=== PATIENT | female | born 1985 | race Caucasian/White ===

== ENCOUNTER 2017-02-28 11:08 | Emergency (ER) | payer OTHER ==
[~2017-02-28] VITALS: Ht 152.4 cm; Wt 65.0 kg
[~2017-02-28 11:08] MED LIST: CEPH-443 PO; IBUP-1542 PO; PREN-39 PO
[2017-02-28 11:10] VITALS: Ht 152.4 cm; Wt 65.0 kg
--- NOTE | 2017-02-28 11:51 | ERD ---
ER Documentation Chief Complaint Date/Time DATE: 02/28/17 TIME: 11:49 Chief Complaint ABD PAIN WITH BACK PAIN X 1 DAY HPI 32-year-old female otherwise healthy complains of left-sided back and flank pain that radiates to her left lower quadrant 1 day. She states that she has had some difficulty with voiding. Pain is sharp, diffuse, intermittent, she has not tried anything for this yet. She denies any fevers, chills, vomiting or diarrhea. Denies hematuria. ROS All systems reviewed and are negative except as per history of present illness. Medications Home Meds Active Scripts Cephalexin* (Keflex*) 500 Mg Capsule, 500 MG PO QID for 7 Days, CAP Prov:MARCIA MAXWELL MD 05/19/16 Ibuprofen* (Motrin*) 600 Mg Tab, 600 MG PO Q6, #20 TAB Prov:MARCIA MAXWELL MD 05/19/16 Ibuprofen* (Motrin*) 600 Mg Tab, 600 MG PO Q6, #30 TAB Prov:SOHAIL MARIANO PA-C 05/03/16 Cephalexin* (Keflex*) 500 Mg Capsule, 500 MG PO QID for 7 Days, CAP Prov:SOHAIL MARIANO PA-C 05/03/16 Ibuprofen* (Ibuprofen*) 600 Mg Tab, 600 MG PO Q6, #20 0 Refills Prov:HENRIETTA GARSIA MD 05/06/15 Reported Medications Vits W-Ca,Fe,Fa(<1MG) ( Vitamins) 1 Tab Tablet, 1 PO for 7 Days 05/05/15 Allergies Allergies: Coded Allergies: No Known Allergy (Unverified , 05/03/16) PMhx/Soc History of Surgery: No Anesthesia Reaction: No Hx Neurological Disorder: No Hx Respiratory Disorders: No Hx Cardiac Disorders: No Hx Psychiatric Problems: No Hx Miscellaneous Medical Probl: No Hx Alcohol Use: No Hx Substance Use: No Hx Tobacco Use: No Physical Exam Vitals Vital Signs Date Time Temp Pulse Resp B/P Pulse Ox O2 Delivery O2 Flow Rate FiO2 02/28/17 11:10 98.1 110 18 128/75 99 Physical Exam General: Well-developed, well-nourished. The patient appears in no acute distress. HEENT: Head is normocephalic, atraumatic. No scleral icterus. Neck: Supple. Nontender. Lungs: Clear to auscultation. Normal air movement. Heart: Regular rate and rhythm. S1 and S2 are normal. No murmurs, gallops, or rubs. Abdomen: Soft, ttp to the left lower quadrant, there is no rebound pain, no masses. No McBurney's tenderness. No CVA tenderness Extremities: No clubbing or cyanosis. Normal pulses. Moving extremities x 4. No weakness. Neurologic: Alert and oriented 3. No focal deficits. Skin: Normal turgor. No rash or lesions. Result Diagram: 02/28/17 1144 02/28/17 1144 Results 24 hrs Laboratory Tests Test 02/28/17 11:44 White Blood Count 12.210^3/ul Red Blood Count 4.6210^6/ul Hemoglobin 13.2g/dl Hematocrit 40.6% Mean Corpuscular Volume 87.9fl Mean Corpuscular Hemoglobin 28.6pg Mean Corpuscular Hemoglobin Concent 32.5g/dl Red Cell Distribution Width 13.7% Platelet Count 13555^3/UL Mean Platelet Volume 10.8fl Neutrophils % 79.8% Lymphocytes % 12.4% Monocytes % 7.1% Eosinophils % 0.2% Basophils % 0.2% Nucleated Red Blood Cells % 0.0/100WBC Neutrophils # 9.710^3/ul Lymphocytes # 1.510^3/ul Monocytes # 0.910^3/ul Eosinophils # 0.010^3/ul Basophils # 0.010^3/ul Nucleated Red Blood Cells # 0.010^3/ul Urine Color YELLOW Urine Clarity SLIGHTLY CLOUDY Urine pH 6.0 Urine Specific [place] 1.024 Urine Ketones NEGATIVEmg/dL Urine Nitrite NEGATIVEmg/dL Urine Bilirubin NEGATIVEmg/dL Urine Urobilinogen NEGATIVEmg/dL Urine Leukocyte Esterase NEGATIVELeu/ul Urine Microscopic RBC 3/HPF Urine Microscopic WBC 4/HPF Urine Squamous Epithelial Cells FEW/HPF Urine Mucus MODERATE/HPF Urine Hemoglobin NEGATIVEmg/dL Urine Glucose NEGATIVEmg/dL Urine Total Protein 1+mg/dl Sodium Level 142mmol/L Potassium Level 3.7mmol/L Chloride Level 103mmol/L Carbon Dioxide Level 22mmol/L Anion Gap 21 Blood Urea Nitrogen 6mg/dl Creatinine 0.54mg/dl Glucose Level 145mg/dl Calcium Level 9.2mg/dl Total Bilirubin 0.7mg/dl Direct Bilirubin 0.00mg/dl Indirect Bilirubin 0.7mg/dl Aspartate Amino Transf (AST/SGOT) 13IU/L Alanine Aminotransferase (ALT/SGPT) 27IU/L Alkaline Phosphatase 64IU/L Total Protein 7.9g/dl Albumin 4.5g/dl Globulin 3.40g/dl Albumin/Globulin Ratio 1.32 Lipase 37U/L Current Medications Medications (Trade) Dose Ordered Sig/Tabby Route PRN Reason Start Time Stop Time Status Last Admin Dose Admin Ibuprofen 600 mg 600 mg ONCE ONCE PO 02/28/17 12:00 02/28/17 12:01 DC 02/28/17 11:56 Sodium Chloride 1,000 ml @ 1,000 mls/hr Q1H STAT IV 02/28/17 13:23 02/28/17 14:22 Metronidazole 100 ml @ 100 mls/hr ONCE STAT IVPB 02/28/17 13:23 02/28/17 14:22 Ciprofloxacin/ Dextrose (Cipro Ivpb) 200 ml @ 200 mls/hr ONCE STAT IVPB 02/28/17 13:23 02/28/17 14:22 DIAGNOSTIC IMAGING REPORT Patient: JEFERSON JOLLY : 1985 Age: 32 Sex: F MR #: [id number] DOS: 02/28/17 1136 Ordering MD: MAO GUADARRAMA PA-C Location: E Room/Bed: PROCEDURE: CT Abdomen and Pelvis without contrast. CLINICAL INDICATION: Left sided abdominal pain. TECHNIQUE: CT scan of the abdomen and pelvis without contrast was performed on a multidetector high-resolution CT scanner. The patient was scanned without intravenous contrast. Coronal and sagittal reformatted images were obtained from the axial source images. Images were reviewed on a high-resolution PACS workstation. One or more of the following dose reduction techniques were used: Automated exposure control, adjustment of the mA and/or kV according to patient size, use of iterative reconstruction technique. The total exam CTDI equals 9.08 mGy and the total exam DLP equals 520.31 mGy-cm. COMPARISON: None. FINDINGS: CT abdomen: The lung bases are clear. The heart size is normal, without pericardial thickening or effusion. The liver is normal in size and density without focal mass or intrahepatic biliary dilatation. The spleen is normal in size and homogeneous in density. The stomach is grossly unremarkable. The pancreas as visualized is normal. The gallbladder and biliary tree are unremarkable and there is no evidence for biliary dilatation. The adrenal glands are symmetric and normal. The kidneys are symmetrically unremarkable as well. No renal calculus or obstructive uropathy or mass lesion is seen. The aorta is of normal caliber. There is no retroperitoneal lymphadenopathy. The nicanor hepatis region is clear. The small bowel and mesentery, as visualized , are unremarkable. An inflamed diverticulum is seen at the posterior aspect of the distal descending colon with extensive victorino diverticular and pericolonic inflammatory changes extending into the left paracolic gutter and left pelvis. Associated circumferential wall edema of the distal descending and proximal sigmoid colon is noted. There is a moderate amount of fluid within the left paracolic gutter as well as within the cul-de-sac. The collection of fluid in the mid left paracolic gutter is dependent and measures 3.2 x 2.6 x 6.0 cm. Without contrast it is difficult to discern if this represents reactive intraperitoneal free fluid versus organized abscess formation. A similar 4.9 x 2.8 x 1.1 cm collection of fluid is present in the cul-de-sac. There is no evidence of free air. The appendix is normal. CT pelvis: The small bowel loops situated within the pelvis are unremarkable. The pelvic organs are normal. The pelvic sidewalls and inguinal regions are clear. The rectum is unremarkable. No mass or lymphadenopathy is seen. A mild lumbar levoscoliosis is present. The surrounding osseous structures are otherwise unremarkable. No osteolytic or osteoblastic lesion is detected. IMPRESSION: 1. Severe acute diverticulitis involving the distal descending colon with inflammatory changes extending to the distal descending and proximal sigmoid colon. Collections of fluid are seen layering in the left paracolic gutter and cul-de-sac as described above. Without IV contrast, it is difficult discern if this represent organized abscess formation versus reactive free fluid. No definite free air seen. 2. Mild lumbar levoscoliosis. RPTAT: JJ .Siddharth Hassan MD, MD Date Time Electronically viewed and signed by .Siddharth Hassan MD, MD on 02/28/2017 12:47 .A/ CC: MAO GUADARRAMA PA-C Procedures/MDM 32-year-old female presents with left-sided abdominal pain 1 day with nausea, patient presents with severe diverticulitis that extends to the sigmoid colon, with a collection of fluid, abscess versus perforation. Patient will require hospital admission, and IV antibiotics. The case was reviewed and discussed with Dr. Asif who agrees with the plan of care including labs, treatment, and advanced imaging as appropriate. Departure Diagnosis: Primary Impression: Diverticulitis Condition: Stable MAO GUADARRAMA PA-C Feb 28, 2017 11:51
[2017-02-28] MEDS ORDERED: IBUPROFEN 600 MG TAB PO ONE (12:00)
[2017-02-28 12:08] LABS: BASOPHILS % 0.2 % (0.0-2.0); EOSINOPHILS % 0.2 % (0.0-7.0); HEMATOCRIT 40.6 % (37.0-47.0); HEMOGLOBIN 13.2 g/dl (12.0-16.0); LYMPHOCYTES # 1.5 10^3/ul (0.8-2.9); LYMPHOCYTES % 12.4 % (15.0-51.0); MEAN CORPUSCULAR HEMOGLOBIN 28.6 pg (29.0-33.0); MEAN CORPUSCULAR HGB CONC 32.5 g/dl (32.0-37.0); MEAN CORPUSCULAR VOLUME 87.9 fl (82.0-101.0); MEAN PLATELET VOLUME 10.8 fl (7.4-10.4); MONOCYTE # 0.9 10^3/ul (0.3-0.9); MONOCYTES % 7.1 % (0.0-11.0); NEUTROPHIL # 9.7 10^3/ul (1.6-7.5); NEUTROPHILS % 79.8 % (39.0-77.0); PLATELET COUNT 206 10^3/UL (140-415); RED BLOOD COUNT 4.62 10^6/ul (4.20-5.40); RED CELL DISTRIBUTION WIDTH 13.7 % (11.5-14.5); WHITE BLOOD COUNT 12.2 10^3/ul (4.8-10.8)
[2017-02-28 12:15] LABS: ADD UMIC YES; UR ASCORBIC ACID NEGATIVE (NEGATIVE); UR BILIRUBIN (Dip) NEGATIVE (NEGATIVE); UR BLOOD (Dip) NEGATIVE (NEGATIVE); UR CLARITY SLIGHTLY CLOUDY (CLEAR); UR COLOR YELLOW (YELLOW); UR GLUCOSE (Dip) NEGATIVE (NEGATIVE); UR KETONES (Dip) NEGATIVE (NEGATIVE); UR LEUKOCYTE ESTERASE (Dip) NEGATIVE Leu/ul (NEGATIVE); UR MUCUS MODERATE /HPF (NONE SEEN); UR NITRITE (Dip) NEGATIVE (NEGATIVE); UR RBC 3 /HPF (0-5); UR SPECIFIC GRAVITY (Dip) 1.024 (1.003-1.030); UR SQUAMOUS EPITHELIAL CELL FEW /HPF (FEW); UR TOTAL PROTEIN (Dip) 1+ mg/dl (NEGATIVE); UR UROBILINOGEN (Dip) NEGATIVE (NEGATIVE)
[2017-02-28 12:20] LABS: ALBUMIN 4.5 g/dl (3.3-4.9); ALBUMIN/GLOBULIN RATIO 1.32; BILIRUBIN,INDIRECT 0.7 mg/dl (0-1.1); BILIRUBIN,TOTAL 0.7 mg/dl (0.2-1.3); CALCIUM 9.2 mg/dl (8.4-10.2); CREATININE 0.54 mg/dl (0.44-1.00); POTASSIUM 3.7 mmol/L (3.5-5.1); TOTAL PROTEIN 7.9 g/dl (6.1-8.1)
--- NOTE | 2017-02-28 12:48 | RADRPT ---
PROCEDURE: CT Abdomen and Pelvis without contrast. CLINICAL INDICATION: Left sided abdominal pain. TECHNIQUE: CT scan of the abdomen and pelvis without contrast was performed on a multidetector hig h-resolution CT scanner. The patient was scanned without intravenous contrast. Coronal and sagittal reformatted images were obtained from the axial source images. Images were reviewed on a high-resol [employer] PACS workstation. One or more of the following dose reduction techniques were used: Automated exposure control, adjustment of the mA and/or kV according to patient size, use of iterative recon struction technique. The total exam CTDI equals 9.08 mGy and the total exam DLP equals 520.31 mGy-c m. COMPARISON: None. FINDINGS: CT abdomen: The lung bases are clear. The heart size is normal, without pericardial thickening or effusion. The liver is normal in size and density without focal mass or intrahepatic biliary dilatation. The spleen is normal in size and homogeneous in density. The stomach is grossly unremarkable. The panc reas as visualized is normal. The gallbladder and biliary tree are unremarkable and there is no anthony dence for biliary dilatation. The adrenal glands are symmetric and normal. The kidneys are symmetr ically unremarkable as well. No renal calculus or obstructive uropathy or mass lesion is seen. The aorta is of normal caliber. There is no retroperitoneal lymphadenopathy. The nicanor hepatis reg ion is clear. The small bowel and mesentery, as visualized, are unremarkable. An inflamed diverticulum is seen at the posterior aspect of the distal descending colon with extensi ve victorino diverticular and pericolonic inflammatory changes extending into the left paracolic gutter a nd left pelvis. Associated circumferential wall edema of the distal descending and proximal sigmoid colon is noted. There is a moderate amount of fluid within the left paracolic gutter as well as wi thin the cul-de-sac. The collection of fluid in the mid left paracolic gutter is dependent and denisse ures 3.2 x 2.6 x 6.0 cm. Without contrast it is difficult to discern if this represents reactive in traperitoneal free fluid versus organized abscess formation. A similar 4.9 x 2.8 x 1.1 cm collection of fluid is present in the cul-de-sac. There is no evidence of free air. The appendix is normal. CT pelvis: The small bowel loops situated within the pelvis are unremarkable. The pelvic organs are normal. T he pelvic sidewalls and inguinal regions are clear. The rectum is unremarkable. No mass or lymphade nopathy is seen. A mild lumbar levoscoliosis is present. The surrounding osseous structures are otherwise unremarkab le. No osteolytic or osteoblastic lesion is detected. IMPRESSION: 1. Severe acute diverticulitis involving the distal descending colon with inflammatory changes exte nding to the distal descending and proximal sigmoid colon. Collections of fluid are seen layering i n the left paracolic gutter and cul-de-sac as described above. Without IV contrast, it is difficult discern if this represent organized abscess formation versus reactive free fluid. No definite free a ir seen. 2. Mild lumbar levoscoliosis. RPTAT: JJ .Siddharth Hassan MD, MD Date Time Electronically viewed and signed by .Siddharth Hassan MD, on 02/28/2017 12:47 .A/
[2017-02-28] MEDS ORDERED: metroNIDAZOLE 500 MG/NS (PMX) 100 ML IVPB STA (13:23)
[2017-02-28] MEDS ORDERED: SOD CHLORIDE 0.9% 1,000 ML IV STA (13:23)
[2017-02-28] MEDS ORDERED: CIPROFLOXACIN 400MG/D5W 200 ML IVPB STA (13:23)
--- NOTE | 2017-02-28 14:50 | QN ---
Documentation Comment My independent concise history is left-sided abdominal pain and flank pain. My pertinent physical exam findings are left-sided abdominal pain. The plan is IV antibiotics and transferred to [facility] with the accepting physician of Dr. Galo for severe diverticulitis.. ELIJAH COWAN MD Feb 28, 2017 14:50
[2017-02-28 17:30] VITALS: BP 120/82; PULSE 96; RESP 16; TEMP 98.1
== END 2017-02-28 18:05 | disposition short-term general hospital (02) ==
LOC: FTE 11:08
DX: K57.92 Diverticulitis of intestine, part unspecified, without perforation or abscess without bleeding (principal)
CPT/HCPCS: 36415; 74176; 80053; 81001; 83690; 85025; 87040; 96374; 96375; J0744; J7030; Z7502; Z7610

== ENCOUNTER 2017-09-26 09:28 | Emergency (ER) | END 2017-09-26 13:14 | disposition home or self-care (01) ==

== ENCOUNTER 2018-07-29 17:57 | Emergency (ER) | END 2018-07-29 23:03 | disposition home or self-care (01) ==

== ENCOUNTER 2018-09-30 09:25 | Emergency (ER) | payer OTHER ==
[~2018-09-30] VITALS: Wt 71.1 kg
[~2018-09-30 09:25] MED LIST changes: -CEPH-443 PO; +IBUP-1541 PO; -IBUP-1542 PO
[2018-09-30] MEDS ORDERED: KETOROLAC 30 MG INJ IV STA (10:19)
[2018-09-30] MEDS ORDERED: SOD CHLORIDE 0.9% 1,000 ML IV STA (10:19)
[2018-09-30] MEDS ORDERED: ONDANSETRON 4 MG INJ IV STA (10:19)
[2018-09-30] MEDS ORDERED: CEFTRIAXONE 1 GM/50 ML (PMX) 50 ML IVPB ONE (11:30)
[2018-09-30] MEDS ORDERED: IOHEXOL 300MG/ML 150 ML BTL ONE (12:05)
[2018-09-30] MEDS ORDERED: SOD CHLORIDE 0.9% 100 ML ONE (12:05)
[2018-09-30] MEDS ORDERED: ACET500C5 PO (12:47)
[2018-09-30] MEDS ORDERED: IBUP800T48 PO (12:47)
[2018-09-30] MEDS ORDERED: CIPR500T4 PO (12:47)
[2018-09-30 13:08] VITALS: BP 101/66; PULSE 100; RESP 17
--- NOTE | 2018-09-30 14:17 | ERD ---
ER Documentation Chief Complaint Chief Complaint rlq pain rad into back, nausea, cooling measures initiated HPI 33-year-old female presenting with right lower quadrant pain radiating to her right lower back. Denies any vomiting. Fever started today and has not taken medications. Denies any cough or runny nose. Denies sore throat. Denies changes to urination or bowel movement. 3 weeks ago patient had a D&C and is not have any more vaginal bleeding. Denies medical problems. NKDA. Surgical history denies. Social history denies ROS All systems reviewed and are negative except as per history of present illness. Medications Home Meds Active Scripts Acetaminophen* (Tylophen*) 500 Mg Capsule, 1 CAP PO Q6H PRN for PAIN AND OR ELEVATED TEMP, #20 CAP Prov:SOHAIL MARIANO PA-C 09/30/18 Ibuprofen* (Motrin*) 800 Mg Tab, 800 MG PO Q6, #30 TAB Prov:SOHAIL MARIANO PA-C 09/30/18 Ciprofloxacin Hcl* (Ciprofloxacin Hcl*) 500 Mg Tablet, 500 MG PO BID for 10 Days, TAB Prov:SOHAIL MARIANO PA-C 09/30/18 Reported Medications Ibuprofen* (Ibuprofen*) 400 Mg Tablet, 400 MG PO Q6H PRN for PAIN, TAB 09/10/18 Ibuprofen* (Ibuprofen*) 400 Mg Tablet, 400 MG PO Q6H PRN for PAIN, TAB 09/10/18 Vits W-Ca,Fe,Fa(<1MG) ( Vitamins) 1 Tab Tablet, 1 PO for 7 Days 05/05/15 Allergies Allergies: Coded Allergies: No Known Allergy (Unverified , 05/03/16) PMhx/Soc History of Surgery: No Anesthesia Reaction: No Hx Neurological Disorder: No Hx Respiratory Disorders: No Hx Cardiac Disorders: No Hx Psychiatric Problems: No Hx Miscellaneous Medical Probl: No Hx Alcohol Use: No Hx Substance Use: No Hx Tobacco Use: No Smoking Status: Never smoker FmHx Family History: No diabetes, No coronary disease, No other Physical Exam Vitals Vital Signs Date Temp Pulse Resp B/P (MAP) Pulse Ox O2 O2 Flow FiO2 Time Delivery Rate 09/30/18 99.2 100 17 101/66 96 Room Air 13:08 (78) 09/30/18 102.0 114 20 120/69 99 09:37 (86) Physical Exam GENERAL: The patient is well-appearing, well-nourished, in no acute distress HEENT: Atraumatic. Conjunctivae are pink. Pupils equal, round, and reactive to light. There is no scleral icterus. Tympanic membranes clear bilaterally. Oropharynx clear. NECK: C-spine is soft and supple. There is no meningismus. There is no cer vical lymphadenopathy. CHEST: Clear to auscultation bilaterally. There are no rales, wheezes or rho nchi. HEART: Regular rate and rhythm. No murmurs, clicks, rubs or gallops. ABDOMEN: Mild tenderness to palpation to the suprapubic region extending to the right lower quadrant. No rebound tenderness. Normoactive bowel sounds. No distention BACK: Possible tenderness in the right CVA region. Result Diagram: 09/30/18 1010 09/30/18 1010 Results 24 hrs Laboratory Tests Test 09/30/18 10:10 09/30/18 10:19 White Blood Count 7.6 10^3/ul Red Blood Count 4.71 10^6/ul Hemoglobin 13.3 g/dl Hematocrit 42.0 % Mean Corpuscular Volume 89.2 fl Mean Corpuscular Hemoglobin 28.2 pg Mean Corpuscular Hemoglobin Concent 31.7 g/dl Red Cell Distribution Width 13.7 % Platelet Count 202 10^3/UL Mean Platelet Volume 10.4 fl Immature Granulocytes % 0.400 % Neutrophils % 91.7 % Lymphocytes % 7.0 % Monocytes % 0.4 % Eosinophils % 0.1 % Basophils % 0.4 % Nucleated Red Blood Cells % 0.0 /100WBC Immature Granulocytes # 0.030 10^3/ul Neutrophils # 7.0 10^3/ul Lymphocytes # 0.5 10^3/ul Monocytes # 0.0 10^3/ul Eosinophils # 0.0 10^3/ul Basophils # 0.0 10^3/ul Nucleated Red Blood Cells # 0.0 10^3/ul Urine Color STRAW Urine Clarity SLIGHTLY CLOUDY Urine pH 5.0 Urine Specific [place] 1.010 Urine Ketones NEGATIVE mg/dL Urine Nitrite NEGATIVE mg/dL Urine Bilirubin NEGATIVE mg/dL Urine Urobilinogen NEGATIVE mg/dL Urine Leukocyte Esterase TRACE Shilpa/ul Urine Microscopic RBC 2 /HPF Urine Microscopic WBC 23 /HPF Urine Squamous Epithelial Cells FEW /HPF Urine Bacteria FEW /HPF Urine Hemoglobin 1+ mg/dL Urine Glucose NEGATIVE mg/dL Urine Total Protein NEGATIVE mg/dl Sodium Level 141 mmol/L Potassium Level 4.4 mmol/L Chloride Level 106 mmol/L Carbon Dioxide Level 25 mmol/L Anion Gap 10 Blood Urea Nitrogen 12 mg/dl Creatinine 0.56 mg/dl Est Glomerular Filtrat Rate mL/min > 60 mL/min Glucose Level 127 mg/dl Calcium Level 9.8 mg/dl Total Bilirubin 0.4 mg/dl Direct Bilirubin 0.00 mg/dl Indirect Bilirubin 0.4 mg/dl Aspartate Amino Transf (AST/SGOT) 16 IU/L Alanine Aminotransferase (ALT/SGPT) 21 IU/L Alkaline Phosphatase 77 IU/L Total Protein 7.6 g/dl Albumin 4.3 g/dl Globulin 3.30 g/dl Albumin/Globulin Ratio 1.30 Lipase 67 U/L POC Beta HCG, Qualitative NEGATIVE Current Medications Medications Dose Sig/Tabby Start Time Status Last (Trade) Ordered Route PRN Stop Time Admin Dose Reason Admin Sodium 1,000 ml @ Q1H STAT 09/30/18 DC 09/30/18 Chloride 1,000 mls/hr IV 10:19 10:42 09/30/18 11:18 Ondansetron 4 mg ONCE STAT 09/30/18 DC 09/30/18 HCl (Zofran IV 10:19 10:43 Inj) 09/30/18 10:21 Ketorolac 30 mg ONCE STAT 09/30/18 DC 09/30/18 Tromethamine IV 10:19 10:43 (Toradol) 09/30/18 10:21 Ceftriaxone 50 ml @ ONCE ONCE 09/30/18 DC 09/30/18 Sodium 100 mls/hr IVPB 11:30 11:22 09/30/18 11:59 Sodium 100 ml @ ud STK-MED 09/30/18 DC 09/30/18 Chloride ONCE .ROUTE 12:05 12:18 09/30/18 12:06 Iohexol 150 ml STK-MED 09/30/18 DC 09/30/18 (Omnipaque ONCE .ROUTE 12:05 12:18 300mg/ ml) 09/30/18 12:06 Procedures/MDM DIAGNOSTIC IMAGING REPORT Patient: JEFERSON JOLLY : 1985 Age: 33 Sex: F MR #: [id number] [facility] #: [id number] DOS: 09/30/18 1155 Ordering MD: CHEMA MARIANO PA-C Location: E Room/Bed: PROCEDURE: CT Abdomen and Pelvis with contrast CLINICAL INDICATION: Abdominal pain TECHNIQUE: Transaxial computed tomographic images of the abdomen and pelvis were obtained following the uneventful administration of 100 mL Omnipaque-300 intravenous contrast according to standard protocol. Coronal and sagittal refor matted images were provided. DICOM images are available. Radiation dose: CTDIvol (mGy) = 12.84; total DLP (mGy.cm) = 681.10. One or more of the following dose reduction techniques were used: - Automated exposure control. - Adjustment of the mA and/or kV according to patient size. - Use of iterative reconstruction technique. COMPARISON: CT of the abdomen and pelvis dated 02/28/2017. FINDINGS: The visualized lung bases are clear. There is no pleural effusion. The liver demonstrates mild hypoattenuation representing hepatic steatosis. The gallbladder, pancreas, adrenal glands, and left kidney are normal. The spleen is mildly enlarged measuring 13 cm cranial caudally. In the right kidney demonstrates hypoenhancement with multiple areas of linear hypoattenuation extending to the renal cortex. There is mild right pelviectasis with diffuse urothelial enhancement extending along the renal collecting system and the right ureter. No renal or ureteral calculi are seen. Mild right p erinephric stranding is noted. There is a small hiatal hernia. There is no evidence of intestinal obstruction. Thick-walled appearance of the ascending colon and the hepatic flexure of the colon is likely related to nondistended state. Colonic diverticulosis is noted without evidence of acute diverticulitis. The appendix is normal. There is no free intraperitoneal air or fluid in the abdomen. There is no suspicious mesenteric or retroperitoneal lymphadenopathy. The abdominal aorta is of normal diameter. Urinary bladder is distended and appears normal. The uterus is present with heterogeneous enhancement and areas of contour bulge likely representing uterine fibroids. Small amount of free pelvic fluid is present. The osseous structures of the abdomen and pelvis are intact. There is levocurvature of the lumbar spine. IMPRESSION: 1. Hypoenhancement of the right kidney with areas of linear hypodensity within the renal parenchyma, mild right perinephric stranding, and diffuse right urothelial enhancement. These findings are concerning for right pyelonephritis. No renal or ureteral calculi are seen. A recently passed calculus is also within the differential diagnosis. 2. Hepatic steatosis. 3. Mild splenomegaly. 4. Colonic diverticulosis without CT evidence of acute diverticulitis. 5. Heterogeneous density of the uterus with areas of contour bulge likely representing uterine fibroids. DIAGNOSTIC IMAGING REPORT Patient: JEFERSON JOLLY : 1985 Age: 33 Sex: F MR #: [id number] DOS: 09/30/18 1002 Ordering MD: CHEMA MARIANO PA-C Location: FTE Room/Bed: PROCEDURE: US Pelvis. CLINICAL INDICATION: pelvic pain , demise TECHNIQUE: Multiple sonographic images of the pelvis were obtained utilizing transabdominal technique. The images were reviewed on a PACS workstation. COMPARISON: US PELVIS 09/08/2018 FINDINGS: The uterus is normal in size with a normal appearance of the myometrium. The uterus measures 7.7 x 5.0 x 7.2 cm. The endometrial stripe is homogeneous in appearance and has the thickness of 6 mm. The ovaries are normal in size and echogenicity. Normal Doppler flow is identified in both ovaries. The right ovary measures 2.7 x 1.8 x 1.7 cm. The left ovary measures 3.0 x 1.4 x 2.2 cm. No free fluid is present within the pelvis. RPTAT: AA IMPRESSION: Unremarkable pelvic ultrasound. Previously seen intrauterine gestation is no longer visualized. ER Course: 1 L normal saline given ED. Rocephin given ED. Urine sent for culture. Influenza negative. MDM: 33-year-old female presenting with findings consistent with pyelonephritis. Patient will be discharged with outpatient antibiotics and supportive medications. I have low suspicion for sepsis. Patient is told symptoms change or worsen to return immediately to the ER. Patient is told if symptoms change or worsen to return the ER. I have considered septic stone versus appendicitis versus pelvic infection I have low suspicion. All questions answered at [facility] Departure Diagnosis: Primary Impression: Pyelonephritis Condition: Stable Patient Instructions: Pyelonephritis, Female (Adult) Referrals: COMMUNITY CLINICS YOU HAVE RECEIVED A MEDICAL SCREENING EXAM AND THE RESULTS INDICATE THAT YOU DO NOT HAVE A CONDITION THAT REQUIRES URGENT TREATMENT IN THE EMERGENCY DEPARTMENT. FURTHER EVALUATION AND TREATMENT OF YOUR CONDITION CAN WAIT UNTIL YOU ARE SEEN IN YOUR DOCTORS OFFICE WITHIN THE NEXT 1-2 DAYS. IT IS YOUR RESPONSIBILITY TO MAKE AN APPOINTMENT FOR FOLOW-UP CARE. IF YOU HAVE A PRIMARY DOCTOR --you should call your primary doctor and schedule an appointment IF YOU DO NOT HAVE A PRIMARY DOCTOR YOU CAN CALL OUR PHYSICIAN REFERRAL HOTLINE AT IF YOU CAN NOT AFFORD TO SEE A PHYSICIAN YOU CAN CHOSE FROM THE FOLLOWING [facility] [address] [facility] [address] [facility] [address] [facility] [address] [facility] [address] [facility]. [facility]. [address] Additional Instructions: FOLLOW UP WITH YOUR PRIMARY CARE PHYSICIAN TOMORROW.Return to this facility if you are not improving as expected. SOHAIL MARIANO PA-C Sep 30, 2018 14:17
== END 2018-09-30 13:10 | disposition home or self-care (01) ==
LOC: FTE 09:25
DX: N12 Tubulo-interstitial nephritis, not specified as acute or chronic (principal); R10.2 Pelvic and perineal pain
CPT/HCPCS: 36415; 74177; 76856; 80053; 81001; 81025; 83690; 85025; 87086; 87400; 96361; 96365; 96366; 96375; J0696; J1885; J2405; J7030; Q9967; Z7502; Z7610

== ENCOUNTER 2019-01-12 19:16 | Emergency (ER) | payer OTHER ==
[~2019-01-12] VITALS: Ht 162.6 cm; Wt 71.9 kg
[~2019-01-12 19:16] MED LIST changes: +ACET500C5 PO; +CIPR500T4 PO; +IBUP800T48 PO
[2019-01-12 19:25] VITALS: Ht 162.6 cm; Wt 71.9 kg
--- NOTE | 2019-01-12 19:48 | ERD ---
ER Documentation Chief Complaint Chief Complaint VAG BLEED AND CRAMPING X'S 1 DAY. 12 WEEKS PG. HX SPONTANEOUS HPI 33-year-old female, G6, P3 at approximately 12 weeks , presents to the emergency department, complaining of 2 days with vaginal bleeding, described as passing big clots, associated with pelvic cramping pain. ROS All systems reviewed and are negative except as per history of present illness. Medications Home Meds Active Scripts Acetaminophen* (Tylophen*) 500 Mg Capsule, 1 CAP PO Q6H PRN for PAIN AND OR ELEVATED TEMP, #20 CAP Prov:SOHAIL MARIANO PA-C 09/30/18 Ibuprofen* (Motrin*) 800 Mg Tab, 800 MG PO Q6, #30 TAB Prov:SOHAIL MARIANO PA-C 09/30/18 Ciprofloxacin Hcl* (Ciprofloxacin Hcl*) 500 Mg Tablet, 500 MG PO BID for 10 Days, TAB Prov:SOHAIL MARIANO PA-C 09/30/18 Reported Medications Ibuprofen* (Ibuprofen*) 400 Mg Tablet, 400 MG PO Q6H PRN for PAIN, TAB 09/10/18 Ibuprofen* (Ibuprofen*) 400 Mg Tablet, 400 MG PO Q6H PRN for PAIN, TAB 09/10/18 Vits W-Ca,Fe,Fa(<1MG) ( Vitamins) 1 Tab Tablet, 1 PO for 7 Days 05/05/15 Allergies Allergies: Coded Allergies: No Known Allergy (Unverified , 05/03/16) PMhx/Soc History of Surgery: No Anesthesia Reaction: No Hx Neurological Disorder: No Hx Respiratory Disorders: No Hx Cardiac Disorders: No Hx Psychiatric Problems: No Hx Miscellaneous Medical Probl: No Hx Alcohol Use: No Hx Substance Use: No Hx Tobacco Use: No FmHx Family History: No diabetes, No coronary disease Physical Exam Vitals Vital Signs Date Temp Pulse Resp B/P (MAP) Pulse Ox O2 O2 Flow FiO2 Time Delivery Rate 01/12/19 97.9 66 18 113/70 98 Room Air 21:43 (84) 01/12/19 98.5 107 20 144/83 100 19:25 (103) Physical Exam Const: No acute distress Head: Atraumatic Eyes: Normal Conjunctiva ENT: Normal External Ears, Nose and Mouth. Neck: Full range of motion. No meningismus. Resp: Clear to auscultation bilaterally Cardio: Regular rate and rhythm, no murmurs Abd: Soft, non tender, non distended. Normal bowel sounds : vaginal bleeding noticed, speculum exam revealed cervix closed, blood clots removed, no evidence of active bleeding per os Skin: No petechiae or rashes Back: No midline or flank tenderness Ext: No cyanosis, or edema Neur: Awake and alert Psych: Normal Mood and Affect Results 24 hrs Laboratory Tests Test 01/12/19 21:07 Bedside Urine pH (LAB) 6.0 Bedside Urine Protein (LAB) Negative Bedside Urine Glucose (UA) Negative Bedside Urine Ketones (LAB) Negative Bedside Urine Blood 2+ Bedside Urine Nitrite (LAB) Negative Bedside Urine Leukocyte Esterase (L Negative Patient: JEFERSON JOLLY : 1985 Age: 33 Sex: F MR #: [id number] DOS: 01/12/192003 Ordering MD: MARY KEITH MD Location: [facility] Room/Bed: PROCEDURE: US OB AND ULTRASOUND CERVIX. CLINICAL INDICATION: Size and dates TECHNIQUE: Multiple sonographic images of the pelvis and gravid uterus were obtained. The images were reviewed on a PACS workstation. COMPARISON: No prior studies are available for comparison. FINDINGS: Cervix: Length: 3.0 cm. Closed and competent. Gestation: Single live intrauterine gestation. Cardiac activity: 150 beats per minute. Presentation: Variable Placenta: Location: Anterior. Appearance: No previa or abruption. MVP = 5.0 cm Measurements: BPD = 2.9 cm, 15 weeks and 1 day HC = 11 cm, 15 weeks and 2 days AC = 9.6 cm, 15 weeks and 5 days FL = 1.5 cm, 14 weeks and 3 days Gestational Age: AUA estimated gestational age: 15 weeks 0 days LMP estimated gestational age: 14 weeks 2 days AUA estimated date of delivery: 07/06/19 The EFW = 115 g, 89%ile based on LMP age. RPTAT: AA IMPRESSION: Single live intrauterine gestation of approximately 15 weeks and 0 days based on ultrasound measurements. Procedures/MDM Vital signs stable, Physical exam unremarkable. Differential diagnosis include but not limited to: UTI, threatening , incomplete versus complete , ectopic , physiologic implantation bleeding, molar . Physical examination and clinical presentation most likely consistent with threatening . During the ED course the patient remained hemodynamically stable and asymptomatic. Results and clinical impression discussed with patient who agrees with management. The patient is stable to be treated outpatient and will be discharged home with close monitoring and follow-up in 2 days with her primary physician. Bed rest and pelvic rest recommended until further medical evaluation. The patient was instructed regarding the outcomes and the potential complications like severe bleeding and . If the patient presents severe bleeding or pain, she was instructed to return to the hospital immediately. Disclaimer: Inadvertent spelling and grammatical errors are likely due to EHR/dictation software use and do not reflect on the overall quality of patient care. Also, please note that the electronic time recorded on this note does not necessarily reflect the actual time of the patient encounter. Departure Diagnosis: Primary Impression: Vaginal bleeding Additional Impression: with 15 completed weeks gestation Condition: Stable Additional Instructions: Muchas pamela por [facility] para carbajal servicio. Esperamos que en carbajal visita a la ursula de emergencia carbajal problema medico haya sido solucionado y que se sienta mucho mejor. Para estar seguros que carbajal mejoria sigue en proceso, le pedimos el favor de hacer ashlyn joshua de seguimiento medico con carbajal doctor primario en los proximos 2-4 vernon. Lleve con usted estos documentos y las medicinas recetadas. Si evelyn sintomas empeoran, NO SE ESPERE, por favor regrese a ursula de emergencia INMEDIATAMENTE. En isabel que usted no tenga un mdico de atencin primaria: Llame al mdico o clnica comunitaria de referencia que aparece abajo wen las horas de consultorio para hacer ashlyn joshua para que le vean. CLINICAS: [facility] [phone] [id number] [phone] [facility] 792 [phone] [address] [facility] [phone] [facility]. [facility] 267 [phone] [id number] [facility] [phone] MARY GONZALEZ MD Jan 12, 2019 19:48
[2019-01-12 21:43] VITALS: BP 113/70; PULSE 66; RESP 18
== END 2019-01-12 21:44 | disposition home or self-care (01) ==
LOC: FTE 19:16
DX: O20.9 Hemorrhage in early pregnancy, unspecified (principal); Z3A.15 15 weeks gestation of pregnancy
CPT/HCPCS: 76801; 81003; Z7502